=== PATIENT | male | born 1945 | race Caucasian/White ===

== ENCOUNTER 2020-12-12 07:12 | Day surgery (SDC) | payer MEDICARE, OTHER ==
[~2020-12-12] VITALS: Ht 188 cm; Wt 78.7 kg
[2020-12-12 07:39] VITALS: BP 118/75
[2020-12-12] MEDS ORDERED: albumin 25% 100mL bottle x 1 IV PRN (07:40)
[2020-12-12] MEDS ORDERED: FURO-150 PO (07:43)
[2020-12-12] MEDS ORDERED: ALBU18HF2 INH (07:43)
[2020-12-12 08:56] VITALS: BP 132/85
[2020-12-12 09:00] VITALS: BP 131/80
[2020-12-12 10:11] LABS: GLUCOSE,BODY FLUID 90 MG/DL; LDH,BODY FLUID 161 U/L; TOTAL PROTEIN,BODY FLUID 4.1 G/DL
== END 2020-12-12 09:10 | disposition home or self-care (01) ==
LOC: SSTAY O 07:12
PROVIDERS: ATTEND Radiology Diagnostic Radiology
DX: J90 Pleural effusion, not elsewhere classified (principal); R06.02 Shortness of breath; E78.5 Hyperlipidemia, unspecified; N40.0 Benign prostatic hyperplasia without lower urinary tract symptoms; Z98.890 Other specified postprocedural states; Z87.891 Personal history of nicotine dependence; Z79.899 Other long term (current) drug therapy; R74.8 Abnormal levels of other serum enzymes; Z13.220 Encounter for screening for lipoid disorders; R05 Cough
CPT/HCPCS: 32555; 71045; 82945; 83615; 84157; 87070; 88108; 88305; 88341; 88342

== ENCOUNTER 2020-12-27 08:11 | Day surgery (SDC) | payer MEDICARE, OTHER ==
[~2020-12-27] VITALS: Ht 182.9 cm; Wt 75.9 kg
[2020-12-27] VITALS (10 sets, daily range): BP systolic 85–119; BP diastolic 54–86
[~2020-12-27 08:11] MED LIST: ALBU18HF2 INH; FURO-150 PO
[2020-12-27] MEDS ORDERED: albumin 25% 100mL bottle x 1 IV PRN (08:40)
[2020-12-27] MEDS ORDERED: MAGN400C PO (08:43)
[2020-12-27] MEDS ORDERED: BEE550CA PO (08:43)
[2020-12-27] MEDS ORDERED: ASCO500C18 PO (08:43)
[2020-12-27] MEDS ORDERED: IBUP-24 PO (08:43)
[2020-12-27] MEDS ORDERED: vitamin d3 PO (08:43)
[2020-12-27 10:41] LABS: TOTAL PROTEIN,BODY FLUID 3.9 G/DL
--- NOTE | 2020-12-27 11:00 | NUR ---
Received call from Harry DUBOIS, states okay for patient to discharge he reviewed chest x-ray. Will continue to monitor patient.
== END 2020-12-27 11:00 | disposition home or self-care (01) ==
LOC: SSTAY O 08:11
PROVIDERS: ATTEND Radiology Diagnostic Radiology
DX: J90 Pleural effusion, not elsewhere classified (principal); E78.5 Hyperlipidemia, unspecified; N40.0 Benign prostatic hyperplasia without lower urinary tract symptoms; Z98.890 Other specified postprocedural states; Z87.891 Personal history of nicotine dependence; Z79.899 Other long term (current) drug therapy
CPT/HCPCS: 32555; 71045; 82945; 83615; 84157; 87070

== ENCOUNTER 2021-01-10 09:15 | Day surgery (SDC) | payer MEDICARE, OTHER ==
[~2021-01-10] VITALS: Ht 182.9 cm; Wt 74.1 kg
[2021-01-10] VITALS (7 sets, daily range): BP systolic 85–125; BP diastolic 53–72
[~2021-01-10 09:15] MED LIST changes: +ASCO500C18 PO; +BEE550CA PO; -FURO-150 PO; +IBUP-24 PO; +MAGN400C PO; +vitamin d3 PO
[2021-01-10] MEDS ORDERED: GINK120C PO (09:47)
[2021-01-10] MEDS ORDERED: albumin 25% 100mL bottle x 1 IV PRN (09:50)
== END 2021-01-10 12:00 | disposition home or self-care (01) ==
LOC: SSTAY O 09:15
PROVIDERS: ATTEND Radiology Diagnostic Radiology
DX: J90 Pleural effusion, not elsewhere classified (principal); E78.5 Hyperlipidemia, unspecified; N40.0 Benign prostatic hyperplasia without lower urinary tract symptoms; Z98.890 Other specified postprocedural states; Z79.899 Other long term (current) drug therapy; Z87.891 Personal history of nicotine dependence
CPT/HCPCS: 32555

== ENCOUNTER 2021-01-24 16:01 | Emergency (ER) | payer MEDICARE, OTHER ==
[~2021-01-24] VITALS: Ht 180.3 cm; Wt 70.0 kg
[~2021-01-24 16:01] MED LIST changes: +GINK120C PO
[2021-01-24 19:09] VITALS: BP 122/85
== END 2021-01-24 22:15 | disposition home or self-care (01) ==
LOC: ER 16:02
DX: J90 Pleural effusion, not elsewhere classified (principal); R06.02 Shortness of breath; Z85.118 Personal history of other malignant neoplasm of bronchus and lung; Z79.899 Other long term (current) drug therapy
CPT/HCPCS: 32555; 71045; 99285

== ENCOUNTER 2021-02-03 08:46 | Day surgery (SDC) | payer MEDICARE, OTHER ==
[~2021-02-03] VITALS: Ht 182.9 cm; Wt 69.9 kg
[2021-02-03] VITALS (7 sets, daily range): BP systolic 105–117; BP diastolic 55–75
[2021-02-03] MEDS ORDERED: albumin 25% 100mL bottle x 1 IV PRN (09:10)
== END 2021-02-03 10:55 | disposition home or self-care (01) ==
LOC: SSTAY O 08:46
PROVIDERS: ATTEND Radiology Vascular & Interventional Radiology
DX: J90 Pleural effusion, not elsewhere classified (principal); E78.5 Hyperlipidemia, unspecified; N40.0 Benign prostatic hyperplasia without lower urinary tract symptoms; Z20.822 Contact with and (suspected) exposure to COVID-19; Z85.118 Personal history of other malignant neoplasm of bronchus and lung; Z98.890 Other specified postprocedural states; Z87.891 Personal history of nicotine dependence; Z79.899 Other long term (current) drug therapy
CPT/HCPCS: 32555; 36415; U0003; U0005

== ENCOUNTER 2021-02-16 08:49 | Day surgery (SDC) | payer MEDICARE, OTHER ==
[2021-02-16] VITALS (9 sets, daily range): BP systolic 94–114; BP diastolic 57–70
[~2021-02-16] VITALS: Ht 182.9 cm; Wt 66.9 kg
[~2021-02-16 08:49] MED LIST changes: -ALBU18HF2 INH
== END 2021-02-16 11:20 | disposition home or self-care (01) ==
LOC: SSTAY O 08:49
PROVIDERS: ATTEND Radiology Vascular & Interventional Radiology
DX: J90 Pleural effusion, not elsewhere classified (principal); N40.0 Benign prostatic hyperplasia without lower urinary tract symptoms; E78.5 Hyperlipidemia, unspecified; Z85.118 Personal history of other malignant neoplasm of bronchus and lung; Z98.890 Other specified postprocedural states; Z87.891 Personal history of nicotine dependence; Z79.899 Other long term (current) drug therapy
CPT/HCPCS: 32555; 71045

== ENCOUNTER 2021-02-28 08:08 | Day surgery (SDC) | payer MEDICARE, OTHER ==
[~2021-02-28] VITALS: Ht 182.9 cm; Wt 64.5 kg
[~2021-02-28 08:08] MED LIST changes: -IBUP-24 PO; -MAGN400C PO; -vitamin d3 PO
[2021-02-28 08:27] VITALS: BP 92/62
[2021-02-28] MEDS ORDERED: albumin 25% 100mL bottle x 1 IV PRN (08:30)
[2021-02-28 09:06] VITALS: BP 81/42
[2021-02-28 09:27] VITALS: BP 103/61
== END 2021-02-28 09:40 | disposition home or self-care (01) ==
LOC: SSTAY O 08:08
PROVIDERS: ATTEND Radiology Vascular & Interventional Radiology
DX: J90 Pleural effusion, not elsewhere classified (principal); I95.9 Hypotension, unspecified; N40.0 Benign prostatic hyperplasia without lower urinary tract symptoms; E78.5 Hyperlipidemia, unspecified; Z85.118 Personal history of other malignant neoplasm of bronchus and lung; Z98.890 Other specified postprocedural states; Z87.891 Personal history of nicotine dependence
CPT/HCPCS: 32555; 76604

== ENCOUNTER 2021-03-02 07:59 | Emergency (ER) | payer MEDICARE, OTHER ==
[~2021-03-02] VITALS: Ht 182.9 cm; Wt 64.5 kg
[2021-03-02 10:13] VITALS: BP 111/58
--- NOTE | 2021-03-02 10:13 | NUR ---
THORACENTESIS COMPLETED. POST CXR AT BEDSIDE.
== END 2021-03-02 11:03 | disposition home or self-care (01) ==
LOC: ER 07:59
DX: J90 Pleural effusion, not elsewhere classified (principal); Z98.3 Post therapeutic collapse of lung status; Z88.8 Allergy status to other drugs, medicaments and biological substances; Z85.118 Personal history of other malignant neoplasm of bronchus and lung
CPT/HCPCS: 32554; 71045; 99285

== ENCOUNTER 2021-03-09 09:22 | Day surgery (SDC) | payer MEDICARE, OTHER ==
[~2021-03-09] VITALS: Ht 185.4 cm; Wt 65.5 kg
[2021-03-09 09:42] VITALS: BP 111/80
[2021-03-09] MEDS ORDERED: MIDO5TAB4 PO (09:57)
[2021-03-09] MEDS ORDERED: MORP-92 SL (10:08)
[2021-03-09] MEDS ORDERED: IBUP-1984 PO (10:08)
[2021-03-09 11:00] VITALS: BP 114/70
[2021-03-09 11:02] VITALS: BP 117/63
[2021-03-09 11:17] VITALS: BP 114/69
[2021-03-09 11:32] VITALS: BP 94/73
[2021-03-09 11:47] VITALS: BP 112/68
== END 2021-03-09 11:55 | disposition home or self-care (01) ==
LOC: SSTAY O 09:22
PROVIDERS: ATTEND Radiology Vascular & Interventional Radiology
DX: J90 Pleural effusion, not elsewhere classified (principal); N40.0 Benign prostatic hyperplasia without lower urinary tract symptoms; E78.5 Hyperlipidemia, unspecified; Z98.890 Other specified postprocedural states; Z87.891 Personal history of nicotine dependence; Z85.118 Personal history of other malignant neoplasm of bronchus and lung; Z79.899 Other long term (current) drug therapy
CPT/HCPCS: 32555

== ENCOUNTER 2021-03-20 09:17 | Day surgery (SDC) | payer MEDICARE, OTHER ==
[~2021-03-20] VITALS: Ht 182.9 cm; Wt 68.4 kg
[~2021-03-20 09:17] MED LIST changes: -BEE550CA PO; -GINK120C PO; +IBUP-1984 PO; +MIDO5TAB4 PO; +MORP-92 SL
[2021-03-20 09:40] VITALS: BP 111/70
[2021-03-20] MEDS ORDERED: albumin 25% 100mL bottle x 1 IV PRN (09:40)
[2021-03-20 10:10] VITALS: BP 111/70
[2021-03-20 10:19] VITALS: BP 108/68
[2021-03-20 10:34] VITALS: BP 111/60
[2021-03-20 10:49] VITALS: BP 110/63
[2021-03-20 11:04] VITALS: BP 118/62
== END 2021-03-20 11:15 | disposition home or self-care (01) ==
LOC: SSTAY O 09:17
PROVIDERS: ATTEND Radiology Diagnostic Radiology
DX: J90 Pleural effusion, not elsewhere classified (principal); E78.5 Hyperlipidemia, unspecified; N40.0 Benign prostatic hyperplasia without lower urinary tract symptoms; Z85.118 Personal history of other malignant neoplasm of bronchus and lung; Z98.890 Other specified postprocedural states; Z87.891 Personal history of nicotine dependence; Z79.891 Long term (current) use of opiate analgesic; Z79.899 Other long term (current) drug therapy
CPT/HCPCS: 32555

== ENCOUNTER 2021-03-30 08:47 | Day surgery (SDC) | payer MEDICARE, OTHER ==
[~2021-03-30] VITALS: Ht 182.9 cm; Wt 71.4 kg
[2021-03-30] MEDS ORDERED: albumin 25% 100mL bottle x 1 IV PRN (09:25)
[2021-03-30 09:38] VITALS: BP 115/76
[2021-03-30 09:48] VITALS: BP 110/72
[2021-03-30 10:00] VITALS: BP 116/77
[2021-03-30 10:15] VITALS: BP 126/71
[2021-03-30 10:30] VITALS: BP 119/71
[2021-03-30 10:59] VITALS: BP 121/69
== END 2021-03-30 10:59 | disposition home or self-care (01) ==
LOC: SSTAY O 08:47
PROVIDERS: ATTEND Radiology Vascular & Interventional Radiology
DX: J90 Pleural effusion, not elsewhere classified (principal); E78.5 Hyperlipidemia, unspecified; N40.0 Benign prostatic hyperplasia without lower urinary tract symptoms; Z85.118 Personal history of other malignant neoplasm of bronchus and lung; Z98.890 Other specified postprocedural states; Z87.891 Personal history of nicotine dependence; Z79.899 Other long term (current) drug therapy
CPT/HCPCS: 32555

== ENCOUNTER 2021-04-11 08:46 | Day surgery (SDC) | payer MEDICARE, OTHER ==
[~2021-04-11] VITALS: Ht 182.9 cm; Wt 68.2 kg
[2021-04-11 09:03] VITALS: BP 103/69
[2021-04-11 09:35] VITALS: BP 108/69
[2021-04-11] MEDS ORDERED: albumin 25% 100mL bottle x 1 IV PRN (09:35)
[2021-04-11 09:50] VITALS: BP 122/64
[2021-04-11 10:05] VITALS: BP 113/67
[2021-04-11 10:20] VITALS: BP 124/54
[2021-04-11 10:35] VITALS: BP 129/55
== END 2021-04-11 10:40 | disposition home or self-care (01) ==
LOC: SSTAY O 08:46
PROVIDERS: ATTEND Radiology Diagnostic Radiology
DX: J90 Pleural effusion, not elsewhere classified (principal); E78.5 Hyperlipidemia, unspecified; N40.0 Benign prostatic hyperplasia without lower urinary tract symptoms; Z85.118 Personal history of other malignant neoplasm of bronchus and lung; Z98.890 Other specified postprocedural states; Z87.891 Personal history of nicotine dependence; Z79.899 Other long term (current) drug therapy
CPT/HCPCS: 32555

== ENCOUNTER 2021-04-20 08:34 | Day surgery (SDC) | payer MEDICARE, OTHER ==
[~2021-04-20] VITALS: Ht 182.9 cm; Wt 66.0 kg
[2021-04-20 09:00] VITALS: BP 114/64
[2021-04-20] MEDS ORDERED: albumin 25% 100mL bottle x 1 IV PRN (09:20)
[2021-04-20 10:10] VITALS: BP 104/74
[2021-04-20 10:20] VITALS: BP 121/70
[2021-04-20 10:35] VITALS: BP 119/67
[2021-04-20 10:50] VITALS: BP 116/65
[2021-04-20 11:05] VITALS: BP 112/63
== END 2021-04-20 15:15 | disposition home or self-care (01) ==
LOC: SSTAY O 08:34
PROVIDERS: ATTEND Preventive Medicine Aerospace Medicine
DX: J90 Pleural effusion, not elsewhere classified (principal); E78.5 Hyperlipidemia, unspecified; N40.0 Benign prostatic hyperplasia without lower urinary tract symptoms; Z85.118 Personal history of other malignant neoplasm of bronchus and lung; Z98.890 Other specified postprocedural states; Z87.891 Personal history of nicotine dependence; Z79.899 Other long term (current) drug therapy; Z79.891 Long term (current) use of opiate analgesic
CPT/HCPCS: 32555

== ENCOUNTER 2021-04-28 08:13 | Day surgery (SDC) | payer MEDICARE, OTHER ==
[~2021-04-28] VITALS: Ht 193 cm; Wt 64.9 kg
[2021-04-28 08:44] VITALS: BP 113/79
[2021-04-28] MEDS ORDERED: albumin 25% 100mL bottle x 1 IV PRN (08:45)
[2021-04-28 10:03] VITALS: BP 99/63
[2021-04-28 10:15] VITALS: BP 116/62
[2021-04-28 10:30] VITALS: BP 123/62
[2021-04-28 10:45] VITALS: BP 124/74
[2021-04-28 11:00] VITALS: BP 118/73
== END 2021-04-28 11:17 | disposition home or self-care (01) ==
LOC: SSTAY O 08:13
PROVIDERS: ATTEND Radiology Diagnostic Radiology
DX: J90 Pleural effusion, not elsewhere classified (principal); N40.0 Benign prostatic hyperplasia without lower urinary tract symptoms; E78.5 Hyperlipidemia, unspecified; C34.90 Malignant neoplasm of unspecified part of unspecified bronchus or lung; Z87.891 Personal history of nicotine dependence; Z79.899 Other long term (current) drug therapy; Z98.890 Other specified postprocedural states
CPT/HCPCS: 32555

== ENCOUNTER 2021-05-08 08:42 | Day surgery (SDC) | payer MEDICARE, OTHER ==
[~2021-05-08] VITALS: Ht 182.9 cm; Wt 66.4 kg
[2021-05-08 09:00] VITALS: BP 115/72
[2021-05-08] MEDS ORDERED: MORPHINE 100 MG/5 ML (09:10)
[2021-05-08] MEDS ORDERED: ATRIN IH (09:10)
[2021-05-08] MEDS ORDERED: SENN-263 PO (09:10)
[2021-05-08] MEDS ORDERED: albumin 25% 100mL bottle x 1 IV PRN (09:20)
[2021-05-08 09:30] VITALS: BP 115/74
[2021-05-08 09:45] VITALS: BP 114/61
[2021-05-08 10:00] VITALS: BP 110/66
[2021-05-08 10:15] VITALS: BP 115/64
[2021-05-08 11:45] VITALS: BP 114/61
== END 2021-05-08 10:35 | disposition home or self-care (01) ==
LOC: SSTAY O 08:42
PROVIDERS: ATTEND Radiology Diagnostic Radiology
DX: J90 Pleural effusion, not elsewhere classified (principal); E78.5 Hyperlipidemia, unspecified; N40.0 Benign prostatic hyperplasia without lower urinary tract symptoms; Z85.118 Personal history of other malignant neoplasm of bronchus and lung; Z98.890 Other specified postprocedural states; Z87.891 Personal history of nicotine dependence; Z79.899 Other long term (current) drug therapy
CPT/HCPCS: 32555

== ENCOUNTER 2021-05-19 08:24 | Day surgery (SDC) | payer MEDICARE, OTHER ==
[~2021-05-19] VITALS: Ht 182.9 cm; Wt 66.5 kg
[~2021-05-19 08:24] MED LIST changes: -ASCO500C18 PO; +ATRIN IH; +MORPHINE 100 MG/5 ML; +SENN-263 PO
[2021-05-19 08:50] VITALS: BP 126/77
[2021-05-19] MEDS ORDERED: albumin 25% 100mL bottle x 1 IV PRN (09:10)
[2021-05-19 09:50] VITALS: BP 110/67
[2021-05-19 09:55] VITALS: BP 125/70
[2021-05-19 10:10] VITALS: BP 120/77
[2021-05-19 10:25] VITALS: BP 122/68
[2021-05-19 10:40] VITALS: BP 115/71
== END 2021-05-19 10:51 | disposition home or self-care (01) ==
LOC: SSTAY O 08:24
PROVIDERS: ATTEND Radiology Diagnostic Radiology
DX: J90 Pleural effusion, not elsewhere classified (principal); N40.0 Benign prostatic hyperplasia without lower urinary tract symptoms; E78.5 Hyperlipidemia, unspecified; Z85.118 Personal history of other malignant neoplasm of bronchus and lung; Z98.890 Other specified postprocedural states; Z87.891 Personal history of nicotine dependence; Z79.899 Other long term (current) drug therapy
CPT/HCPCS: 32555

== ENCOUNTER 2021-05-29 08:38 | Day surgery (SDC) | payer MEDICARE, OTHER ==
[~2021-05-29] VITALS: Ht 182.9 cm; Wt 68.0 kg
[2021-05-29] VITALS (7 sets, daily range): BP systolic 112–122; BP diastolic 45–73
[~2021-05-29 08:38] MED LIST changes: -ATRIN IH
== END 2021-05-29 10:50 | disposition home or self-care (01) ==
LOC: SSTAY O 08:38
PROVIDERS: ATTEND Preventive Medicine Aerospace Medicine
DX: J90 Pleural effusion, not elsewhere classified (principal); E78.5 Hyperlipidemia, unspecified; N40.0 Benign prostatic hyperplasia without lower urinary tract symptoms; Z98.890 Other specified postprocedural states; Z85.118 Personal history of other malignant neoplasm of bronchus and lung; Z87.891 Personal history of nicotine dependence; Z79.899 Other long term (current) drug therapy
CPT/HCPCS: 32555

== ENCOUNTER 2021-06-05 08:43 | Day surgery (SDC) | payer MEDICARE, OTHER ==
[~2021-06-05] VITALS: Ht 182.9 cm; Wt 68.6 kg
[2021-06-05 09:00] VITALS: BP 135/88
[2021-06-05 10:00] VITALS: BP 125/80
[2021-06-05 10:13] VITALS: BP 128/78
[2021-06-05 10:25] VITALS: BP 120/67
[2021-06-05 10:40] VITALS: BP 118/67
[2021-06-05 10:55] VITALS: BP 117/67
== END 2021-06-05 11:20 | disposition home or self-care (01) ==
LOC: SSTAY O 08:43
PROVIDERS: ATTEND Radiology Vascular & Interventional Radiology
DX: J90 Pleural effusion, not elsewhere classified (principal); N40.0 Benign prostatic hyperplasia without lower urinary tract symptoms; E78.5 Hyperlipidemia, unspecified; Z79.899 Other long term (current) drug therapy; Z85.118 Personal history of other malignant neoplasm of bronchus and lung; Z98.890 Other specified postprocedural states; Z87.891 Personal history of nicotine dependence
CPT/HCPCS: 32555

== ENCOUNTER 2021-06-16 08:42 | Day surgery (SDC) | payer MEDICARE, OTHER ==
[2021-06-16] VITALS (8 sets, daily range): BP systolic 115–132; BP diastolic 64–85
[~2021-06-16] VITALS: Ht 182.9 cm; Wt 68.9 kg
[2021-06-16] MEDS ORDERED: albumin 25% 100mL bottle x 1 IV PRN (09:05)
[2021-06-16] MEDS ORDERED: LORA-269 PO (09:23)
[2021-06-16] MEDS ORDERED: GUAI-1078 PO (09:23)
== END 2021-06-16 11:50 | disposition home or self-care (01) ==
LOC: SSTAY O 08:42
PROVIDERS: ATTEND Radiology Vascular & Interventional Radiology
DX: J90 Pleural effusion, not elsewhere classified (principal); N40.0 Benign prostatic hyperplasia without lower urinary tract symptoms; E78.5 Hyperlipidemia, unspecified; Z85.118 Personal history of other malignant neoplasm of bronchus and lung; Z98.890 Other specified postprocedural states; Z87.891 Personal history of nicotine dependence; Z79.899 Other long term (current) drug therapy
CPT/HCPCS: 32555